=== PATIENT | male | born 1955 | race Caucasian/White ===

== ENCOUNTER 2019-02-22 20:13 | Emergency (ER) | payer MEDICAID ==
[~2019-02-22] VITALS: Ht 172.7 cm; Wt 97.7 kg
[2019-02-22 21:02] VITALS: Ht 172.7 cm; Wt 97.7 kg
[2019-02-22] MEDS ORDERED: ULTRAM50 MG PO (21:04)
[2019-02-22] MEDS ORDERED: GLUCOPHAGE500 MG PO (21:04)
[2019-02-22] MEDS ORDERED: LIPITOR20 MG PO (21:04)
[2019-02-22 22:36] VITALS: BP 130/87
== END 2019-02-22 22:50 | disposition home or self-care (01) ==
LOC: D.ER 20:13
DX: R51 Headache (principal); E11.9 Type 2 diabetes mellitus without complications; Z79.84 Long term (current) use of oral hypoglycemic drugs; E78.5 Hyperlipidemia, unspecified

== ENCOUNTER → 2019-11-30 09:45 | Outpatient (CLI) | payer MEDICARE, BC, MEDICAID ==
[2019-02-22 21:02] VITALS: BMI 32.7
[~2019-11-30 09:45] MED LIST: GLUCOPHAGE500 MG PO; LIPITOR20 MG PO; ULTRAM50 MG PO
[2019-12-01 12:11] LABS: HEPATITIS C ANTIBODY <0.1 S/CO RAT (0.0-0.9)
== END | disposition home or self-care (01) ==
LOC: D.LAB 08:15 → D.US 10:00
PROVIDERS: ATTEND Internal Medicine Gastroenterology
DX: R74.8 Abnormal levels of other serum enzymes (principal)

== ENCOUNTER → 2020-06-05 09:28 | Outpatient (CLI) | payer MEDICARE, BC, MEDICAID ==
[2019-02-22 21:02] VITALS: BMI 32.7
[2020-06-05 10:04] LABS: ALBUMIN 3.8 g/dL (3.4-5.0); BILIRUBIN - DIRECT 0.08 mg/dL (0.00-0.30); BILIRUBIN - INDIRECT 0.17 mg/dL (0.00-1.00); BILIRUBIN - TOTAL 0.25 mg/dL (0.2-1.3); PROTEIN - SERUM 7.5 g/dL (6.4-8.2)
== END | disposition home or self-care (01) ==
LOC: D.LAB 05-24 09:45 → D.US 05-24 10:30 → D.LAB 09:28
PROVIDERS: ATTEND Internal Medicine Gastroenterology
DX: K76.0 Fatty (change of) liver, not elsewhere classified (principal)